=== PATIENT | male | born 1965 | race Caucasian/White ===

== ENCOUNTER 2021-05-16 21:55 | Emergency (ER) | payer OTHER, SELFPAY ==
[2021-05-16 21:58] VITALS: BP 190/94; PULSE 64; RESP 16; TEMP 36.1; O2SAT 96
--- NOTE | 2021-05-17 01:33 | ED.WOUNDLAC ---
HPI - Wound/Laceration General Chief Complaint: Wound/Laceration Stated Complaint: thumb laceration Time Seen by Provider: 05/17/21 01:23 Source: patient Mode of arrival: ambulatory Limitations: no limitations History of Present Illness HPI narrative: Patient is a 56-year-old male complaining of a cut on his left thumb after accidentally slicing it with a razor that he was changing. Patient denies any other pain or injuries. Tetanus shot is not up-to-date. Related Data Home Medications Medication Instructions Recorded Confirmed clomiphene citrate 50 mg tablet 25 mg PO DAILY tablet 12/31/20 fluticasone propionate 50 1 spray INTRANASAL DAILY 12/31/20 mcg/actuation nasal spray,suspension Allergies Allergy/AdvReac Type Severity Reaction Status Date / Time Penicillins Allergy Unknown Unknown Verified 12/31/20 16:57 Review of Systems Review of Systems: All systems reviewed & are unremarkable except as noted in HPI and below PMFSH Past Medical History Medical History Allergic rhinitis Asthma Surgical History Surgical History H/O thumb surgery Hx of LASIK Family History Family History Father Family history of lung cancer Family history of type 2 diabetes mellitus Patient's father is Diabetes mellitus Family history of alcoholism Mother Family history of coronary artery disease Diabetes mellitus Family history of atrial fibrillation Sibling Family history of obesity Family history of malignant neoplasm Family history of seizure disorder Family history of neuropathy Diabetes mellitus Family history of coronary artery disease Social History Social History Smoking status: Never smoker Second hand tobacco smoke exposure: Yes Alcohol intake: former Alcohol use details: Quit 07/02/2020 Substance use: never Substance use type: does not use Gender identity (if verbalized by the patient): Male Exam Const: General: no acute distress and alert Orientation/consciousness: patient oriented x3 HENMT: Head: normal to inspection Extrem: Other: 2 cm superficial laceration palmar aspect of left thumb, neurovascular is intact Course Vital Signs Vital signs: Vital Signs Temperature 36.1 C L 05/16/21 21:58 Pulse Rate 64 05/16/21 21:58 Respiratory Rate 16 05/16/21 21:58 Blood Pressure 190/94 H 05/16/21 21:58 Pulse Oximetry 96 05/16/21 21:58 Temperature 36.1 C L 05/16/21 21:58 Pulse Rate 64 05/16/21 21:58 Respiratory Rate 16 05/16/21 21:58 Blood Pressure 190/94 H 05/16/21 21:58 Pulse Oximetry 96 05/16/21 21:58 Discharge Plan Discharge Clinical Impression: Finger laceration Qualifiers: Encounter type: initial encounter Finger: thumb Damage to nail status: without damage Foreign body presence: without foreign body Laterality: left Qualified Code(s): S61.012A - Laceration without foreign body of left thumb without damage to nail, initial encounter Patient Disposition: Home, Self-Care Condition: Improved Instructions: Skin Avulsion (ED) Prescriptions: No Action fluticasone propion-salmeterol [Advair Diskus] 500-50 mcg/dose blister with device 1 inh inhalation Q12H Qty: 180 RF: 1 albuterol sulfate [Ventolin HFA] 90 mcg/actuation HFA aerosol inhaler 1 inh INHALATION Q4H PRN (Reason: shortness of breath or wheezing) Qty: 54 RF: 3 clomiphene citrate 50 mg tablet 25 mg PO DAILY RF: 0 fluticasone propionate [Flonase Allergy Relief] 50 mcg/actuation spray,suspension 1 spray intranasal DAILY RF: 0 levocetirizine [Xyzal] 5 mg tablet 5 mg PO DAILY Qty: 30 RF: 5 Follow-up/Referrals: Lesa Johnson MD [Primary Care Provider] - Time of Disposition: 01:35
[2021-05-17] MEDS: TETANUS,DIPHTHERIA,AC PERTUSSIS ADULT (0.5 ML) BOOSTRIX IM (01:50)
[2021-05-17] MEDS: CELLULOSE OXIDIZED 4 x 8 INCH 1 PKT XX (02:04)
== END 2021-05-17 02:21 | disposition home or self-care (01) ==
PROVIDERS: Emergency Provider Emergency Medicine; PCP Family Medicine
DX: S61.012A Laceration without foreign body of left thumb without damage to nail, initial encounter (principal); Z23 Encounter for immunization; W27.8XXA Contact with other nonpowered hand tool, initial encounter
CPT/HCPCS: 12001; 90471; 90715; 99282

== ENCOUNTER → 2022-01-02 09:32 | Outpatient (CLI) | payer OTHER, SELFPAY ==
--- NOTE | ~2022-01-02 | XR_ITS ---
Corrected Report See bolded text 01/02/2022 [facility] EXAMINATION: XR chest min 4V Exam Date/Time: 01/02/2022 9:39 CDT CLINICAL HISTORY: R06.02 - Shortness of breath Comparison: None available RESULT: Lines, tubes, and devices: None. Lungs and pleura: Ill-defined somewhat nodular opacity in the left lower lung. No correlate in the lateral view (may be obscured by the heart). Lungs otherwise clear. Cardiomediastinal silhouette: Normal cardiomediastinal silhouette. Other: No acute osseous or upper abdominal finding. IMPRESSION: Opacity in the left lower lung. Recommend additional imaging with PA and bilateral shallow oblique views of the chest, with nipple markers. Reviewed, dictated and finalized at location K. MTDD IMPRESSION: Opacity in the left lower lung. Recommend additional imaging with PA and bilate ral shallow oblique views of the chest, with nipple markers.
== END ==
PROVIDERS: PCP Family Medicine; Visit Provider Physician Assistant
DX: R06.02 Shortness of breath (principal); R91.8 Other nonspecific abnormal finding of lung field
CPT/HCPCS: 71046; 71048

== ENCOUNTER 2022-10-17 10:13 | Day surgery (SDC) | payer OTHER, SELFPAY ==
[2022-08-03 15:07] VITALS: BMI 26.4
[2022-10-04 10:00] VITALS: BMI 25.8
--- NOTE | 2022-10-17 07:50 | WPDANESEPPF ---
Anes - Initial Pre Proc Eval Procedure: Operation Date: 10/17/22 12:30 Proposed Procedures p Screening Colonoscopy - Toni Nance MD Date/Time: 10/17/22 07:50 Surgeon: Toni Nance MD Pre Op Diagnosis: Neoplasm Screening Patient Data Age: 57 Gender: M Height: 1.68 m Weight: 72.7 kg Allergies Allergy/AdvReac Type Severity Reaction Status Date / Time Penicillins Allergy Unknown Unknown Verified 10/17/22 11:15 Home Medications Medication Instructions Recorded Confirmed Type clomiphene citrate 50 mg tablet 25 mg PO DAILY 12/31/20 10/17/22 History fluticasone propionate 50 1 spray intranasal DAILY 12/31/20 10/17/22 History mcg/actuation nasal spray,suspension (Flonase Allergy Relief) fexofenadine 180 mg tablet 180 mg PO DAILY 01/02/22 10/17/22 History (Xin Allergy) fluticasone 500 mcg-salmeterol 50 See Rx Instructions .Route 02/09/22 10/17/22 Rx mcg/dose blistr powdr for .COMPLEX #180 ea inhalation (Advair Diskus) albuterol sulfate 2.5 mg/3 mL 2.5 mg (3 mL) inhalation Q4-6H PRN 03/02/22 10/17/22 Rx (0.083 %) solution for nebulization shortness of breath or wheezing #90 mL albuterol sulfate 90 mcg/actuation 1 inh inhalation Q4H PRN shortness 03/02/22 10/17/22 Rx aerosol inhaler (Ventolin HFA) of breath or wheezing #54 grams Patient hx anesthesia problems: none Family hx anesthesia problems: none Results Review: All pre-operative results and documents have been reviewed as part of the pre-operative evaluation. [facility] Past Medical History Medical History (Updated 01/02/22 @ 09:14 by Caty Rolon PA-C) Allergic rhinitis Asthma Pre-diabetes Surgical History Surgical History H/O thumb surgery Hx of LASIK Family History Family History Father Family history of lung cancer Family history of type 2 diabetes mellitus Patient's father is Diabetes mellitus Family history of alcoholism Mother Family history of coronary artery disease Diabetes mellitus Family history of atrial fibrillation Sibling Family history of obesity Family history of malignant neoplasm Family history of seizure disorder Family history of neuropathy Diabetes mellitus Family history of coronary artery disease Social History Social History (Updated 01/02/22 @ 08:33 by Shikha Trevino [facility]) Smoking status: Never smoker Second hand tobacco smoke exposure: Yes Alcohol intake: never Substance use: never Substance use type: does not use Living arrangements: with family Occupation/Education: occupation Gender identity (if verbalized by the patient): Male Spiritual care concerns: No Anes - Eval Final PreProcedure Day of Procedure 10/17/22 07:50 Patient weight: overweight Heart: regular rate and rhythm Lungs: clear to auscultation Airway: Mallampati scale class II Neurological: alert and oriented Last oral intake: >/= 8 hours ASA classification: II Emergent: no Anesthetic plan: proceed Anesthesia type and monitoring: general GIVS and standard monitoring Results Review: All pre-operative results and documents have been reviewed as part of the pre-operative evaluation. Informed Consent: The patient's anesthetic plan and its attendant risks and benefits were discussed with the patient/family/POA. Questions were solicited and answers provided to the satisfaction of the patient/family/POA.
[2022-10-17 10:55] VITALS: BP 143/87; PULSE 70; RESP 16; TEMP 36.4; O2SAT 98
[2022-10-17] MEDS: LACTATED RINGERS 1,000 ML 150 ML IV CONT (11:23)
--- NOTE | 2022-10-17 12:10 | PM.HPGS ---
History of Present Illness History of Present Illness Consent: Risks, benefits, and alternatives have been discussed and questions answered. Patient agrees to proceed with procedure. Chief complaint: Neoplasm Screening Narrative: Sami Burgos is a 57 year old male here for first screening colonoscopy Review of Systems Constitutional: Constitutional: Denies headache(s) and Denies weakness Eyes: Eyes: Denies blurry vision ENT: Reports Normal hearing present, Denies headache(s) and Denies neck pain Cardiovascular: Cardiovascular: Denies chest pain and Denies dyspnea Respiratory: Respiratory: Denies dyspnea Gastrointestinal: Gastrointestinal: Reports no additional gastrointestinal complaints Genitourinary: Genitourinary: Denies dysuria Musculoskeletal: Musculoskeletal: Denies neck pain Integumentary/Breasts: Skin/Breast: Denies dry skin Neurologic: Reports Normal hearing present, Denies headache(s) and Denies weakness Psychiatric: Psychiatric: Denies anxiety Endocrine: Endocrine: Denies change in body appearance Hematologic/Lymphatic: Hematologic/Lymphatic: Denies easy bleeding Allergic/Immunologic: Allergic/Immunologic: Denies urticaria PMFSH Past Medical History Medical History (Updated 01/02/22 @ 09:14 by Caty Rolon PA-C) Allergic rhinitis Asthma Pre-diabetes Surgical History Surgical History H/O thumb surgery Hx of LASIK Family History Family History Father Family history of lung cancer Family history of type 2 diabetes mellitus Patient's father is Diabetes mellitus Family history of alcoholism Mother Family history of coronary artery disease Diabetes mellitus Family history of atrial fibrillation Sibling Family history of obesity Family history of malignant neoplasm Family history of seizure disorder Family history of neuropathy Diabetes mellitus Family history of coronary artery disease Social History Social History (Updated 01/02/22 @ 08:33 by Shikha Trevino [facility]) Smoking status: Never smoker Second hand tobacco smoke exposure: Yes Alcohol intake: never Substance use: never Substance use type: does not use Living arrangements: with family Occupation/Education: occupation Gender identity (if verbalized by the patient): Male Spiritual care concerns: No Meds Home Medications and Allergies Home Medications Medication Instructions Recorded Confirmed Type clomiphene citrate 50 mg tablet 25 mg PO DAILY 12/31/20 10/17/22 History fluticasone propionate 50 1 spray intranasal DAILY 12/31/20 10/17/22 History mcg/actuation nasal spray,suspension (Flonase Allergy Relief) fexofenadine 180 mg tablet 180 mg PO DAILY 01/02/22 10/17/22 History (Xin Allergy) fluticasone 500 mcg-salmeterol 50 See Rx Instructions .Route 02/09/22 10/17/22 Rx mcg/dose blistr powdr for .COMPLEX #180 ea inhalation (Advair Diskus) albuterol sulfate 2.5 mg/3 mL 2.5 mg (3 mL) inhalation Q4-6H PRN 03/02/22 10/17/22 Rx (0.083 %) solution for nebulization shortness of breath or wheezing #90 mL albuterol sulfate 90 mcg/actuation 1 inh inhalation Q4H PRN shortness 03/02/22 10/17/22 Rx aerosol inhaler (Ventolin HFA) of breath or wheezing #54 grams Allergies Allergy/AdvReac Type Severity Reaction Status Date / Time Penicillins Allergy Unknown Unknown Verified 10/17/22 11:15 Vital Signs Vital Signs - 24 hr 10/17/22 10:55 Temperature 97.5 F L Pulse Rate 70 Respiratory Rate 16 Blood Pressure 143/87 H Pulse Oximetry 98 Oxygen Delivery Room Air Exam Const: General: comfortable and no acute distress HENMT: Face/Nose/Sinus: Normal nares present Eyes: General: appearance normal, both eyes and all related structures Neck: Neck: no JVD Resp: Auscultation: clear to auscultation bilaterally Ca
[2022-10-17 12:23] VITALS: BP 104/52; PULSE 74; RESP 20; O2SAT 97
[2022-10-17 12:33] VITALS: BP 101/69; PULSE 70; RESP 20; O2SAT 97
[2022-10-17 12:43] VITALS: BP 103/85; PULSE 72; RESP 20; O2SAT 96
--- NOTE | 2022-10-17 14:23 | WPDANESPN ---
Anes - Prog Note Post-Op Date/Time: 10/17/22 14:23 Cardiovascular status: normal Respiratory status: normal Airway patency: baseline Mental status: baseline Post-Op hydration status: normal Vital Signs: Last Vital Signs Temp 36.4 C L 10/17/22 10:55 Pulse 72 10/17/22 12:43 Resp 20 10/17/22 12:43 BP 103/85 10/17/22 12:43 Pulse Ox 96 10/17/22 12:43 O2 Del Method Room Air 10/17/22 12:43 Pain Score (VAS): 0 I/O: Intake & Output 10/16/22 10/17/22 10/17/22 23:59 07:59 15:59 Intake Total 400 Balance 400 Post-procedural complaints: none Patient Feedback: Patient satisfied with anesthetic care. Other Findings: Patient vital signs back to baseline. Patient denies nausea and vomiting. Patient's pain under control. Patient OK for discharge.
== END 2022-10-17 13:00 | disposition home or self-care (01) ==
PROVIDERS: PCP Family Medicine; Visit Provider Internal Medicine Gastroenterology
PROC: 0DJD8ZZ Inspection of Lower Intestinal Tract, Via Natural or Artificial Opening Endoscopic (ICD-10-PCS; CPT 45378; principal; 2022-10-17 12:30)
DX: Z12.11 Encounter for screening for malignant neoplasm of colon (principal)
CPT/HCPCS: 45378